=== PATIENT | male | born 1990 | race Caucasian/White ===

== ENCOUNTER 2023-12-27 22:42 | Emergency (ER) | payer OTHER ==
[~2023-12-27] VITALS: Ht 170.2 cm; Wt 86.2 kg
[~2023-12-27 22:42] MED LIST: DOXYCYCLINE HY100 MG PO
[2023-12-27] MEDS: IBUPROFEN 600 MG TAB PO STA (23:18)
[2023-12-27] MEDS ORDERED: IBUPROFEN 600 MG TAB ONE (23:19)
[2023-12-27] MEDS: ONDANSETRON HCL 4 MG ORAL DISINTEGRATING TAB PO ONE (23:20)
[2023-12-27] MEDS ORDERED: ONDANSETRON HCL 4 MG ORAL DISINTEGRATING TAB ONE (23:22)
[2023-12-27 23:43] LABS: CLARITY,URINE CLEAR (CLEAR); COLOR,URINE YELLOW (YELLOW); LEUKOCYTE ESTERASE ,URINE NEGATIVE (NEGATIVE); PH,URINE 5.5 (5 - 7)
[2023-12-27 23:44] LABS: BILIRUBIN,URINE NEGATIVE (NEGATIVE); GLUCOSE, URINE 500 (NEGATIVE); KETONES,URINE NEGATIVE (NEGATIVE); NITRITE,URINE NEGATIVE (NEGATIVE); PROTEIN,URINE DIPSTICK NEGATIVE (NEGATIVE); URINE UROBILINOGEN 0.2 mg/dL (0.2 - 1)
[2023-12-27 23:49] LABS: BACTERIA,URINE MODERATE /HPF; EPITHELIAL CELLS,URINE FEW /LPF; WBC,URINE (MAN) 21-50 /HPF (0-5); YEAST,URINE FEW
[2023-12-28 00:22] LABS: INFLUENZAE A&B ANTIGEN (RAPID) NEGATIVE (NEGATIVE); RESPIRATORY SYNC. VIRUS NEGATIVE (NEGATIVE)
[2023-12-28 00:27] VITALS: PULSE 108; RESP 16; TEMP 99; O2SAT 98
[2023-12-28] MEDS ORDERED: CEFDINIR 300 MG CAP PO ONE (00:30)
[2023-12-28] MEDS ORDERED: ONDANSETRON ODT4 MG SL (00:34)
[2023-12-28] MEDS ORDERED: CEFDINIR300 MG PO (00:34)
[2023-12-28] MEDS ORDERED: CEFDINIR 300 MG CAP ONE (00:38)
[2023-12-28] MEDS ORDERED: AMOX TR-K CLV1 EAC2 PO (00:45)
== END 2023-12-28 01:20 | disposition home or self-care (01) ==
LOC: ER 23:14
DX: R50.9 Fever, unspecified (principal); J40 Bronchitis, not specified as acute or chronic; N39.0 Urinary tract infection, site not specified; Z11.52 Encounter for screening for COVID-19
CPT/HCPCS: 71046; 81001; 87400; 87420; 99283; Q0162; U0002